=== PATIENT | female | born 1970 | race Two or more races ===

== ENCOUNTER 2022-03-29 15:45 | Emergency (ER) | payer BC ==
[2022-03-29] MEDS ORDERED: Sodium Chloride 0.9% 1,000 ML IV ONE (16:21)
[2022-03-29] MEDS ORDERED: diphenhydrAMINE 50 MG/ML SDV IVPUSH ONE (16:21)
[2022-03-29] MEDS ORDERED: Sodium Chloride 0.9% 10 ML Syringe FLUSH PRN (16:21)
[2022-03-29] MEDS ORDERED: Metoclopramide 10 MG/2 ML SDV IVPUSH ONE (16:21)
[2022-03-29] MEDS ORDERED: Ketorolac 30 MG/ML SDV IVPUSH ONE (16:21)
[2022-03-29 17:39] LABS: CORONAVIRUS COVID-19 NAA POSITIVE (NEGATIVE)
[2022-03-29] MEDS ORDERED: Famotidine 20 MG/2 ML SDV IVPUSH PRN (17:48)
[2022-03-29] MEDS ORDERED: diphenhydrAMINE 50 MG/ML SDV IVPUSH PRN (17:48)
[2022-03-29] MEDS ORDERED: EPINEPHrine 1 MG/ML SDV IM PRN (17:48)
[2022-03-29] MEDS ORDERED: methylPREDNISolone Sodium Succinate 125 MG/2 ML SDV IVPUSH PRN (17:48)
[2022-03-29] MEDS ORDERED: Sodium Chloride 0.9% 10 ML Syringe FLUSH SCH (18:00)
== END 2022-03-29 18:30 | disposition home or self-care (01) ==
LOC: JD.ED 15:45
DX: U07.1 COVID-19 (principal); R11.2 Nausea with vomiting, unspecified; Z88.0 Allergy status to penicillin
CPT/HCPCS: 0240U; 36415; 71045; 80053; 85025; 86140; 96361; 96374; 96375; 99284; J1200; J1885; J2765; J3490; J7030; M0222; Q0222

== ENCOUNTER 2025-09-14 06:53 | Emergency (ER) | payer BC | END 2025-09-14 08:16 | disposition home or self-care (01) | LOC: JD.ED 06:53 | DX: K04.7 Periapical abscess without sinus (principal); Z88.0 Allergy status to penicillin; Z86.16 Personal history of COVID-19 | CPT/HCPCS: 99282; A9270 ==